=== PATIENT | male | born 1940 | race Caucasian/White ===

== ENCOUNTER 2021-06-29 12:18 | Emergency (ER) | payer MEDICARE, SELFPAY ==
--- NOTE | ~2021-06-29 | CT_ITS ---
EXAMINATION: CT ABDOMEN AND PELVIS WITHOUT CONTRAST CLINICAL INFORMATION: Nephrolithiasis. COMPARISON: Multiple priors. Most recent CT of the abdomen and pelvis dated from 09/09/2019. TECHNIQUE: Multidetector volumetric imaging was performed from the superior aspect of the liver through the pubic symphysis. Sagittal and coronal reformatted images were obtained on the technologist's workstation. This CT examination was performed using dose optimization techniques as appropriate, variously including the following: *Automated exposure control *Adjustment of mA and/or kV according to patient size (this includes techniques or standardized protocols for targeted exams where dose is matched to indication/reason for exam; i.e. extremities or head) *Use of iterative reconstruction technique DLP: 900 mGy-cm FINDINGS: LUNG BASES: No focal consolidation or pleural effusion. LIVER, GALLBLADDER, AND BILIARY TREE: The liver is normal in size, shape, and attenuation. No focal hepatic lesion or biliary ductal dilatation is present. Redemonstration of a similar calcification in the region of the falciform ligament (3:13). There is cholelithiasis and likely sludge within the lumen of the gallbladder without evidence of wall thickening or surrounding inflammatory changes. There is no biliary ductal dilatation. PANCREAS: Diffuse fatty atrophy without discrete lesions. The main pancreatic duct is nondilated. SPLEEN: Unremarkable. ADRENAL GLANDS: Unremarkable. KIDNEYS AND URETERS: There is new moderate to severe left hydroureteronephrosis with a 0.6 cm calculus layering dependently in the lumen of the urinary bladder (3:79). In this area of the bladder, there was a 0.3 cm calcification on the prior study from 2019 and therefore this possibly represents a combination of 2 stones. There is no evidence of ureteric calculi. There is no right hydroureteronephrosis. There is redemonstration of multiple bilateral renal calculi which are not significantly changed aside from decrease number of stones in the left kidney. Some of the largest calculi are as follow: A 0.3 cm calculus in the interpolar region of the left kidney (3:30) at approximately 12.6 cm from the skin of the posterior axillary line. A 0.4 cm calculus in the interpolar region of the left kidney (3:33) at 15 cm from the skin of the posterior axillary line. A 0.5 cm calculus in the lower pole of left kidney (3:36) at 14.5 cm from the skin of the posterior axillary line. A 0.57 m calculus in the upper pole of the right kidney (3:31) at approximately 14 cm from the skin of the posterior axillary line. A 0.7 cm calculus in the lower pole of the right kidney (3:39) measuring up to 896 Hounsfield units and situated at approximately 15.5 cm from the skin of the posterior axillary line. There is asymmetric perinephric fat stranding and periureteral fat stranding on the left side. Accounting for limitations in the absence of intravenous contrast, no definite parenchymal abnormalities are identified. BLADDER: As above, there is a 0.6 cm calculus in the lumen of the bladder. There is no wall thickening or surrounding inflammatory changes. GASTROINTESTINAL TRACT: The stomach and the small bowel are nondilated. Normal appendix. No active inflammatory bowel changes. Large stool ball in the rectum. ABDOMINAL WALL: Small fat-containing bilateral inguinal hernias. LYMPH NODES: There is no lymphadenopathy by size criteria. VASCULAR: Scattered atherosclerotic disease. The abdominal aorta is of normal diameter. PELVIC VISCERA: Coarse prostatic calcifications. The prostate gland measures approximately 3.1 x 4.6 cm in maximum AP and TV dimensions. OSSEOUS STRUCTURES: No acute or aggressive osseous abnormalities. Multilevel thoracolumbar spondylosis. CT/CT abdomen pelvis wo con IMPRESSION: New moderate to severe left hydroureteronephrosis with a 0.6 cm calculus within the lumen of the urinary bladder. No ureteric calculi identified. There is asymmetric fat stranding in the left perinephric space, left collecting system and left ureter, likely reactive. However, a superimposed infection should be clinically excluded. There is redemonstration of multiple additional bilateral renal calculi, which are described in detail above. These are overall similar since 2020 aside from decreased number of calculi in the left kidney. Cholelithiasis. No evidence to suggest acute cholecystitis. Large amount of stool in the rectum.
[2021-06-29 13:32] VITALS: BP 151/50; PULSE 56; RESP 16; TEMP 36.9; O2SAT 95; BMI 38.0
[2021-06-29 14:09] LABS: Appearance Urine CLEAR; Color Urine YELLOW; Glucose Urine UA NEG (NEG); Leukocyte Esterase Urine 1+ (NEG); Nitrite Urine NEG (NEG); PH 5.5 (5.0-8.0); Specific Gravity - Urine >= 1.030 (1.005-1.025); UACC Culture Trigger YES; Urine Blood 3+ (NEG); Urine Ketones NEG (NEG); Urine Protein NEG (NEG-TRACE)
[2021-06-29 14:38] LABS: Squamous Epithelial Cell Urine TRACE /LPF
[2021-06-29 14:39] LABS: Mucus Urine 1+ /LPF
--- NOTE | 2021-06-29 17:25 | ED_ITS ---
HPI - Male Genitourinary General Chief complaint: Urogenital-Male Stated complaint: KIDNEY PAIN STONES Time Seen by Provider: 06/29/21 20:00 Source: patient and family Mode of arrival: ambulatory Limitations: no limitations History of Present Illness HPI Narrative: 80-year-old male presents with 2 days of left-sided flank and groin pain. States that he has a history of kidney stones. Onset (ago): day(s) (2) Duration: constant Location: left flank Severity: moderate Severity scale (1-10): 7 Quality: aching and sharp Relieving factors: none Exacerbating factors: urination and movement Context: other (History of recurrent kidney stones) Associated symptoms: Reports denies other symptoms Related Data Previous Rx's Medication Instructions Recorded levofloxacin 500 mg tablet 500 mg PO DAILY 5 Days #5 tab 06/29/21 polyethylene glycol 3350 17 17 g PO BID #510 g 06/29/21 gram/dose oral powder (Miralax) tamsulosin 0.4 mg capsule (Flomax) 0.4 mg PO DAILY #30 cap 06/29/21 Allergies Allergy/AdvReac Type Severity Reaction Status Date / Time No Known Allergies [NKA] Allergy Mild NOT Unverified 04/13/20 14:58 APPLICABLE Review of Systems Review of Systems: Constitutional: No Fever, positive Chills ENT/Mouth: No sore throat Eyes: No Eye Pain, No Swelling, No Redness Cardiovascular: No Chest Pain, No SOB Respiratory: No Cough, No Sputum, No Wheezing Gastrointestinal: positive Nausea, no Vomiting, No Diarrhea, positive abdominal pain Genitourinary: No Dysuria, positive urinary frequency, positive Hematuria, positive Flank Pain, positive hesitancy Musculoskeletal: No joint pain, No Myalgias Skin: No Skin Lesions, No rash Neuro: No Weakness, No Numbness, No Headache Psych: No Anxiety/Panic, No Depression Heme/Lymph: No Bruising, No Lymphadenopathy Endocrine: No Polyuria, No Polydipsia Yes all other systems are reviewed and are negative [facility] Past Medical History Attestation statement: The following information was validated with the patient. Source: old records reviewed Medical History Diabetes Hyperlipemia Hypertension Kidney calculus Social History Social History Alcohol intake: never Patient Tobacco Use Status: Former Tobacco user Use of substances other than those prescribed or required for medical reasons: No Advance Directives: No Advance Directives Information Provided: Yes Physical Exam Vital Signs: Vital Signs: Last Vital Signs Temp 98.2 F 06/29/21 17:35 Pulse 70 06/29/21 19:09 Resp 16 06/29/21 19:09 BP 131/41 L 06/29/21 19:09 Pulse Ox 94 06/29/21 19:09 BMI result Body Mass Index 38.0 Appearance: Alert. Oriented X3. No acute distress. Eyes: Pupils equal, round and reactive to light. ENT: Pharynx normal. Neck: Normal inspection. Neck supple. CVS: Normal heart rate and rhythm. Pulses normal. Respiratory: No respiratory distress. Breath sounds normal. Abdomen: Soft and nontender. Positive CVA tenderness. Skin: Skin warm and dry. Normal skin color. Normal skin turgor. Extremities: No lower extremity edema. Gait well-balanced well coordinated. Neuro: No motor deficit. No sensory deficit. Cranial nerves 2-12 intact. Course Course Course Narrative: 80-year-old male presents with recurrent kidney stones presents with 2 days of left-sided flank and groin pain. Has had intermittent chills but denies fevers. Will order CT abdomen as he does have positive CVA tenderness to left side and tenderness of the left lower quadrant on physical exam. CT scan abdomen pelvis indicates kidney stones with severe hydronephrosis and possible pyelo with perinephric stranding. Patient does not want to stay for admission. Discussion with patient and Dr Livingston in to evaluate my patient still requests to be discharged home. Detailed discussion regarding leaving against medical advice, will provide antibiotics, pain management and Flomax. I did discuss this case with on-call Urology, they will see the patient in the office. Patient verbalizes understanding of and agrees to plan of care. Consultations Consultation #1: santa Time: 20:30 MDM - Male Genitourinary MDM Narrative Medical decision making narrative: Kidney stone, hydronephrosis, pyelo Differential Diagnosis Differential diagnosis: Likely urinary tract infection, urethritis, epididymitis, prostatitis and acute retention of urine Medical Records Attestation: I reviewed the patient's medical records. Lab Data Attestation: I reviewed the patient's lab results. Result diagrams: 06/29/21 17:49 06/29/21 17:48 Labs: Lab Results 06/29/21 06/29/21 06/29/21 Range/Units 13:48 17:48 17:49 WBC 12.2 H (4.8-10.8) X10*3/uL RBC 4.91 (4.60-5.80) X10*6/uL Hgb 14.7 (14.0-18.0) g/dl Hct 44.0 (42.0-52.0) % MCV 89.6 (80.0-98.0) fL MCH 29.9 (27.0-33.0) pg MCHC 33.4 (31.0-36.0) g/dl RDW 12.9 (11.0-16.0) % Plt Count 168 (160-400) X10*3/uL MPV 10.8 (9.4-12.4) fL Immature Gran % (Auto) 0.5 H (0.0-0.4) % Neut % (Auto) 77.9 H (45-73) % Lymph % (Auto) 14.1 L (20-40) % [place] % (Auto) 5.7 (2-11) % Eos % (Auto) 0.6 (0-4) % Baso % (Auto) 1.2 (0-2) % Lymph # (Auto) 1.7 (1.2-4.9) X10*3/uL [place] # (Auto) 0.7 (0.1-1.2) X10*3/uL Eos # (Auto) 0.1 (0.0-0.4) X10*3/uL Baso # (Auto) 0.2 (0.0-0.2) X10*3/uL Abs Immat Gran (auto) 0.06 H (0.00-0.03) X10*3/uL Absolute Neuts (auto) 9.5 H (2.0-8.3) x10*3/uL Absolute Nucleated RBC 0.000 (0.0-0.012) X10*3/uL Nucleated RBC % (auto) 0.0 (0.0-0.2) /100WBC Sodium 137 (135-145) mmol/L Potassium 5.5 H (3.3-5.1) mmol/L Chloride 106 (96-108) mmol/L Carbon Dioxide 21 L (22-29) mmol/L Anion Gap 16 (12-20) BUN 19 H (9-16) mg/dL Creatinine 1.72 H (0.5-1.4) mg/dL Estim Creat Clear Calc 45.9 Estimated GFR 39 Random Glucose 164 H (60-115) mg/dL Calcium 9.2 (8.4-10.2) mg/dL Urine Color YELLOW Urine Appearance CLEAR Urine pH 5.5 (5.0-8.0) Ur Specific [place] >= 1.030 H (1.005-1.025) Urine Protein NEG (NEG-TRACE) MG/DL Urine Glucose (UA) NEG (NEG) MG/DL Urine Ketones NEG (NEG) MG/DL Urine Blood 3+ H (NEG) Urine Nitrite NEG (NEG) Ur Leukocyte Esterase 1+ H (NEG) Urine RBC 10-14 H (0) /HPF Urine WBC 10-14 H (0-4) /HPF Ur Squamous Epith Cells TRACE /LPF Urine Bacteria NONE /LPF Urine Mucus 1+ /LPF Imaging Data CT abdomen pelvis: Attestation: I personally reviewed and interpreted this imaging study as follows: Radiologist's impression: EXAMINATION: CT ABDOMEN AND PELVIS WITHOUT CONTRAST? CLINICAL INFORMATION: Nephrolithiasis.? COMPARISON: Multiple priors. Most recent CT of the abdomen and pelvis dated from 09/09/2019.? TECHNIQUE: Multidetector volumetric imaging was performed from the superior aspect of the liver through the pubic symphysis. Sagittal and coronal reformatted images were obtained on the technologist's workstation.? This CT examination was performed using dose optimization techniques as appropriate, variously including the following: *Automated exposure control *Adjustment of mA and/or kV according to patient size (this includes techniques or standardized protocols for targeted exams where dose is matched to indication/reason for exam; i.e. extremities or head) *Use of iterative reconstruction technique DLP: 900 mGy-cm FINDINGS: LUNG BASES: No focal consolidation or pleural effusion.? LIVER, GALLBLADDER, AND BILIARY TREE: The liver is normal in size, shape, and attenuation. No focal hepatic lesion or biliary ductal dilatation is present. Redemonstration of a similar calcification in the region of the falciform ligament (3:13). There is cholelithiasis and likely sludge within the lumen of the gallbladder without evidence of wall thickening or surrounding inflammatory changes. There is no biliary ductal dilatation.? PANCREAS: Diffuse fatty atrophy without discrete lesions. The main pancreatic duct is nondilated.? SPLEEN: Unremarkable.? ADRENAL GLANDS: Unremarkable.? KIDNEYS AND URETERS: There is new moderate to severe left hydroureteronephrosis with a 0.6 cm calculus layering dependently in the lumen of the urinary bladder (3:79). In this area of the bladder, there was a 0.3 cm calcification on the prior study from 2019 and therefore this possibly represents a combination of 2 stones. There is no evidence of ureteric calculi. There is no right hydroureteronephrosis. There is redemonstration of multiple bilateral renal calculi which are not significantly changed aside from decrease number of stones in the left kidney. Some of the largest calculi are as follow: A 0.3 cm calculus in the interpolar region of the left kidney (3:30) at approximately 12.6 cm from the skin of the posterior axillary line. A 0.4 cm calculus in the interpolar region of the left kidney (3:33) at 15 cm from the skin of the posterior axillary line. A 0.5 cm calculus in the lower pole of left kidney (3:36) at 14.5 cm from the skin of the posterior axillary line. A 0.57 m calculus in the upper pole of the right kidney (3:31) at approximately 14 cm from the skin of the posterior axillary line. A 0.7 cm calculus in the lower pole of the right kidney (3:39) measuring up to 896 Hounsfield units and situated at approximately 15.5 cm from the skin of the posterior axillary line. There is asymmetric perinephric fat stranding and periureteral fat stranding on the left side. Accounting for limitations in the absence of intravenous contrast, no definite parenchymal abnormalities are identified.? BLADDER: As above, there is a 0.6 cm calculus in the lumen of the bladder. There is no wall thickening or surrounding inflammatory changes.? GASTROINTESTINAL TRACT: The stomach and the small bowel are nondilated. Normal appendix. No active inflammatory bowel changes. Large stool ball in the rectum.? ABDOMINAL WALL: Small fat-containing bilateral inguinal hernias.? LYMPH NODES: There is no lymphadenopathy by size criteria. VASCULAR: Scattered atherosclerotic disease. The abdominal aorta is of normal diameter. PELVIC VISCERA: Coarse prostatic calcifications. The prostate gland measures approximately 3.1 x 4.6 cm in maximum AP and TV dimensions.? OSSEOUS STRUCTURES: No acute or aggressive osseous abnormalities. Multilevel thoracolumbar spondylosis.? CT/CT abdomen pelvis wo con IMPRESSION: New moderate to severe left hydroureteronephrosis with a 0.6 cm calculus within the lumen of the urinary bladder. No ureteric calculi identified. There is asymmetric fat stranding in the left perinephric space, left collecting system and left ureter, likely reactive. However, a superimposed infection should be clinically excluded. ? There is redemonstration of multiple additional bilateral renal calculi, which are described in detail above. These are overall similar since 2020 aside from decreased number of calculi in the left kidney. ? Cholelithiasis. No evidence to suggest acute cholecystitis. ? Large amount of stool in the rectum.? ECG Data Attestation: I personally reviewed and interpreted this ECG as follows: ECG interpretation date: 06/29/21 ECG interpretation time: 17:26 Prior ECG tracings: available for review Interpretation: Vent. Rate : 072 BPM ? ? Atrial Rate : 072 BPM ?? P-R Int : 224 ms? QRS Dur : 096 ms ? ? QT Int : 414 ms ? ? ? P-R-T Axes : 072 029 035 degrees ?? QTc Int : 453 ms ? Sinus rhythm with 1st degree A-V block with occasional Premature ventricular complexes Otherwise normal ECG When compared with ECG of 01-JUL-2017 16:52, Premature ventricular complexes are now Present ? Critical Care Time Critical Care Time Critical Care Time: Yes Total Critical Care Time: 40 Attestation: I have personally provided critical care time exclusive of time spent on sepa rately billable procedures. Time includes review of laboratory data, radiology results, discussion with consultants, and monitoring for potential decompensation. Interventions were performed as documented. Discharge Plan Discharge Clinical Impression: Acute pyelonephritis, Kidney stone Patient Disposition: Left Against Medical Advice Instructions: Kidney Stones (ED), Kidney Infection (ED) Additional Instructions: You were evaluated for left-sided flank and groin pain. CT of the abdomen and pelvis indicates multiple kidney stones with kidney infection. You have decided to leave against medical advice. If you develop fevers, chills, nausea, vomiting or any other concerning symptoms please return to the emergency department immediately as you are at high risk for worsening infection including sepsis. Please take Levaquin 750 mg for the next 5 days. Take Flomax 0.4 mg daily. You have a prior prescription for oxycodone. Please continue to use this medication as directed. This medication is a narcotic and has high risk for addiction and abuse. Do not drive or operate machinery while taking this medication. This medication will cause drowsiness, increased risk for falls, and cause constipation. Please use MiraLax daily. CT scan does indicate constipation as you do have a large stool burden. Please use MiraLax twice a day while on oxycodone. I did discuss your case with Dr. Salinas, urology. Please call and request an appointment. He is expecting your call. Thank you for choosing this emergency department for evaluation. Please follow-up with primary care physician as needed. Return to the emergency department for any new, concerning, or worsening symptoms. Prescriptions: New tamsulosin [Flomax] 0.4 mg capsule 0.4 mg PO DAILY Qty: 30 RF: 0 levofloxacin 500 mg tablet 500 mg PO DAILY 5 Days Qty: 5 RF: 0 polyethylene glycol 3350 [Miralax] 17 gram/dose powder 17 g PO BID Qty: 510 RF: 0 Referrals: Price Salinas MD [Physician] - 2 days (Kidney stones, hydronephrosis, pyelonephritis) Stand Alone Forms: Against Medical Advice Interventions: ED Discharge Assessment Last Done: 06/29/21 21:29 Discharge Date/Time: 06/29/21 21:30
--- NOTE | 2021-06-29 17:26 | ECG_ITS ---
Test Reason : ABDOMINAL PAIN Blood Pressure : / mmHG Vent. Rate : 072 BPM Atrial Rate : 072 BPM P-R Int : 224 ms QRS Dur : 096 ms QT Int : 414 ms P-R-T Axes : 072 029 035 degrees QTc Int : 453 ms Sinus rhythm with 1st degree A-V block with occasional Premature ventricular complexes Otherwise normal ECG When compared with ECG of 01-JUL-2017 16:52, Premature ventricular complexes are now Present Referred By: Dayanna Dang Electronically Signed By:PATRICK TERRY
[2021-06-29 17:35] VITALS: BP 194/82; PULSE 71; TEMP 36.8; O2SAT 96
[2021-06-29] MEDS: 0.9 % Sodium Chloride 1,000 ML 999 ML IVCONT ×2 (17:53→20:10)
[2021-06-29 17:55] LABS: MANUAL DIFF FLAG NO
[2021-06-29] MEDS: Morphine Sulfate 4 MG/ML CARTRIDGE IVPUSH (17:56)
[2021-06-29] MEDS: ondansetron HCL 4 MG/2 ML VIAL IVPUSH (17:56)
[2021-06-29 17:59] LABS: Basophils Absolute Auto 0.2 X10*3/uL (0.0-0.2); Basophils Percent Auto 1.2 % (0-2); Eosinophils Absolute Auto 0.1 X10*3/uL (0.0-0.4); Eosinophils Percent Auto 0.6 % (0-4); Hemoglobin 14.7 g/dl (14.0-18.0); Imm Gran Abs Auto 0.06 X10*3/uL (0.00-0.03); Imm Gran Pct Auto 0.5 % (0.0-0.4); Lymphocytes Absolute Auto 1.7 X10*3/uL (1.2-4.9); Lymphocytes Percent Auto 14.1 % (20-40); Mean Corpuscular HGB Conc 33.4 g/dl (31.0-36.0); Mean Corpuscular Hemoglobin 29.9 pg (27.0-33.0); Mean Corpuscular Volume 89.6 fL (80.0-98.0); Mean Platelet Volume 10.8 fL (9.4-12.4); Monocytes Absolute Auto 0.7 X10*3/uL (0.1-1.2); Monocytes Percent Auto 5.7 % (2-11); Neutrophils Absolute Auto 9.5 x10*3/uL (2.0-8.3); Neutrophils Percent Auto 77.9 % (45-73); Platelet Count 168 X10*3/uL (160-400); Red Blood Count 4.91 X10*6/uL (4.60-5.80); Red Cell Distribution Width 12.9 % (11.0-16.0); White Blood Count 12.2 X10*3/uL (4.8-10.8)
[2021-06-29 18:15] LABS: Anion Gap 16 (12-20); Blood Urea Nitrogen 19 mg/dL (9-16); Calcium 9.2 mg/dL (8.4-10.2); Carbon Dioxide 21 mmol/L (22-29); Chloride 106 mmol/L (96-108); Creatinine Clr Calc Pharmacy 45.9; Estimated Glomerular Filt Rate 39; Glucose Random 164 mg/dL (60-115); Potassium 5.5 mmol/L (3.3-5.1); Sodium 137 mmol/L (135-145)
[2021-06-29 19:09] VITALS: BP 131/41; PULSE 70; RESP 16; O2SAT 94
[2021-06-29] MEDS: levoFLOXacin/D5W 500 MG/100 ML PIGGYBACK 100 MG IV (20:11)
[2021-06-29] MEDS: oxyCODONE HCl Immed Release 5 MG TABLET PO (20:13)
[2021-06-29] MEDS: Tamsulosin HCL 0.4 MG CAPSULE PO (20:13)
== END 2021-06-29 21:30 | disposition left against medical advice (07) ==
PROVIDERS: Nurse Practitioner Family; Emergency Provider Internal Medicine; PCP Internal Medicine
DX: N10 Acute pyelonephritis (principal); N13.2 Hydronephrosis with renal and ureteral calculous obstruction; E11.9 Type 2 diabetes mellitus without complications; I10 Essential (primary) hypertension; Z87.442 Personal history of urinary calculi
CPT/HCPCS: 36415; 74176; 80048; 81001; 85025; 87086; 93005; 96361; 96365; 96375; 99285; 99291; J1956; J2270; J2405

== ENCOUNTER 2022-06-24 09:48 | Emergency (ER) | payer MEDICARE, SELFPAY ==
--- NOTE | 2022-06-24 | ECG_ITS ---
Test Reason : numbness in legs Blood Pressure : / mmHG Vent. Rate : 062 BPM Atrial Rate : 062 BPM P-R Int : 240 ms QRS Dur : 092 ms QT Int : 416 ms P-R-T Axes : 072 025 048 degrees QTc Int : 422 ms Sinus rhythm with 1st degree A-V block Otherwise normal ECG When compared with ECG of 29-JUN-2021 18:08, Premature ventricular complexes are no longer Present Referred By: Generic ED Physician Electronically Signed By:ALISHA OBRIEN MD
[2022-06-24 11:01] VITALS: BP 114/53; PULSE 62; RESP 18; TEMP 36.6; O2SAT 94; BMI 35.2
[2022-06-24 11:25] LABS: MANUAL DIFF FLAG NO
[2022-06-24 11:29] LABS: Basophils Absolute Auto 0.1 X10*3/uL (0.0-0.2); Basophils Percent Auto 0.9 % (0-2); Eosinophils Absolute Auto 0.2 X10*3/uL (0.0-0.4); Eosinophils Percent Auto 1.9 % (0-4); Hematocrit 40.1 % (42.0-52.0); Hemoglobin 13.1 g/dl (14.0-18.0); Imm Gran Abs Auto 0.03 X10*3/uL (0.00-0.03); Imm Gran Pct Auto 0.3 % (0.0-0.4); Lymphocytes Absolute Auto 1.5 X10*3/uL (1.2-4.9); Lymphocytes Percent Auto 14.1 % (20-40); Mean Corpuscular HGB Conc 32.7 g/dl (31.0-36.0); Mean Corpuscular Hemoglobin 28.9 pg (27.0-33.0); Mean Corpuscular Volume 88.3 fL (80.0-98.0); Mean Platelet Volume 10.2 fL (9.4-12.4); Monocytes Absolute Auto 0.9 X10*3/uL (0.1-1.2); Monocytes Percent Auto 8.1 % (2-11); Neutrophils Percent Auto 74.7 % (45-73); Platelet Count 174 X10*3/uL (160-400); Red Blood Count 4.54 X10*6/uL (4.60-5.80); Red Cell Distribution Width 12.8 % (11.0-16.0); White Blood Count 10.6 X10*3/uL (4.8-10.8)
[2022-06-24 11:46] LABS: Alanine Aminotransferase 16 U/L (0-40); Alkaline Phosphatase 59 U/L (39-117); Anion Gap 13 (12-20); Aspartate Amino Transferase 28 U/L (5-37); Bilirubin Total 0.8 mg/dL (0.0-1.0); Blood Urea Nitrogen 17 mg/dL (9-16); Carbon Dioxide 26 mmol/L (22-29); Chloride 105 mmol/L (96-108); Creatinine Clr Calc Pharmacy 47.9; Estimated Glomerular Filt Rate 43; Glucose Random 107 mg/dL (60-115); Sodium 139 mmol/L (135-145); Total Protein 6.6 g/dL (6.5-8.0)
--- NOTE | 2022-06-24 14:58 | ED_ITS ---
HPI - General Adult General Chief complaint: Weakness Stated complaint: Leg numbness/Confusion Time Seen by Provider: 06/24/22 14:56 Source: patient Mode of arrival: ambulatory Limitations: no limitations History of Present Illness HPI narrative: Patient with increasing leg cramps and fell on Friday. Patient getting cramping every morning when he gets up. Onset (ago): week(s) Location: lower extremity Severity: moderate Pain Consistency: intermittent Exacerbating factors: other (standing) Associated symptoms: denies other symptoms Related Data Previous Rx's Medication Instructions Recorded levofloxacin 500 mg tablet 500 mg PO DAILY 5 days #5 tabs 06/29/21 polyethylene glycol 3350 17 17 g PO BID #510 grams 06/29/21 gram/dose oral powder (Miralax) tamsulosin 0.4 mg capsule (Flomax) 0.4 mg PO DAILY #30 caps 06/29/21 Allergies Allergy/AdvReac Type Severity Reaction Status Date / Time No Known Allergies [NKA] Allergy Mild NOT Unverified 04/13/20 14:58 APPLICABLE Review of Systems Review of Systems: Yes all other systems are reviewed and are negative [facility] Past Medical History Medical History Diabetes Hyperlipemia Hypertension Kidney calculus Social History Social History Alcohol intake: never Patient Tobacco Use Status: Former Tobacco user Advance Directives: No Advance Directives Information Provided: Yes Physical Exam ED Vital Signs: Vital Signs - 24 hr 06/24/22 11:01 06/24/22 15:29 Temperature 97.8 F 100.1 F Pulse Rate 62 71 Respiratory Rate 18 15 Blood Pressure 114/53 L 119/54 L Pulse Oximetry 94 94 Oxygen Delivery Method Room Air Room Air BMI result Body Mass Index 35.2 Course Reevaluation(s) Reevaluation #1: calcium, magnesium and Vitamin d all normal. patient with leg spasms and myoclonus will dc home and encourage hydration Time: 16:20 Medical Decision Making Lab Data Result diagrams: 06/24/22 11:20 06/24/22 11:20 Labs: Lab Results 06/24/22 06/24/22 Range/Units 11:20 11:20 WBC 10.6 (4.8-10.8) X10*3/uL RBC 4.54 L (4.60-5.80) X10*6/uL Hgb 13.1 L (14.0-18.0) g/dl Hct 40.1 L (42.0-52.0) % MCV 88.3 (80.0-98.0) fL MCH 28.9 (27.0-33.0) pg MCHC 32.7 (31.0-36.0) g/dl RDW 12.8 (11.0-16.0) % Plt Count 174 (160-400) X10*3/uL MPV 10.2 (9.4-12.4) fL Immature Gran % (Auto) 0.3 (0.0-0.4) % Neut % (Auto) 74.7 H (45-73) % Lymph % (Auto) 14.1 L (20-40) % [place] % (Auto) 8.1 (2-11) % Eos % (Auto) 1.9 (0-4) % Baso % (Auto) 0.9 (0-2) % Lymph # (Auto) 1.5 (1.2-4.9) X10*3/uL [place] # (Auto) 0.9 (0.1-1.2) X10*3/uL Eos # (Auto) 0.2 (0.0-0.4) X10*3/uL Baso # (Auto) 0.1 (0.0-0.2) X10*3/uL Abs Immat Gran (auto) 0.03 (0.00-0.03) X10*3/uL Absolute Neuts (auto) 8.0 (2.0-8.3) x10*3/uL Absolute Nucleated RBC 0.000 (0.0-0.012) X10*3/uL Nucleated RBC % (auto) 0.0 (0.0-0.2) /100WBC Sodium 139 (135-145) mmol/L Potassium 5.0 (3.3-5.1) mmol/L Chloride 105 (96-108) mmol/L Carbon Dioxide 26 (22-29) mmol/L Anion Gap 13 (12-20) BUN 17 H (9-16) mg/dL Creatinine 1.56 H (0.5-1.4) mg/dL Estim Creat Clear Calc 47.9 Estimated GFR 43 Random Glucose 107 (60-115) mg/dL Calcium 9.0 (8.4-10.2) mg/dL Magnesium 2.0 (1.6-2.6) mg/dL Total Bilirubin 0.8 (0.0-1.0) mg/dL AST 28 (5-37) U/L ALT 16 (0-40) U/L Alkaline Phosphatase 59 (39-117) U/L Total Protein 6.6 (6.5-8.0) g/dL Albumin 4.0 (3.5-5.0) g/dL 25-OH Vitamin D Total 39.4 (>30) ng/mL Discharge Plan Discharge Clinical Impression: Myoclonus Patient Disposition: Home, Self-Care Instructions: Leg Cramps (ED), Muscle Cramp (ED) Prescriptions: No Action tamsulosin [Flomax] 0.4 mg capsule 0.4 mg PO DAILY Qty: 30 0RF levofloxacin 500 mg tablet 500 mg PO DAILY 5 Days Qty: 5 0RF polyethylene glycol 3350 [Miralax] 17 gram/dose powder 17 g PO BID Qty: 510 0RF Referrals: Stanislav Nice MD [Primary Care Provider] - 5 days
[2022-06-24 15:29] VITALS: BP 119/54; PULSE 71; RESP 15; TEMP 37.8; O2SAT 94
[2022-06-24 15:52] LABS: Vitamin D 25-OH Total 39.4 ng/mL (>30)
== END 2022-06-24 18:16 | disposition home or self-care (01) ==
PROVIDERS: Emergency Provider Emergency Medicine; PCP Internal Medicine
DX: G25.3 Myoclonus (principal); R53.1 Weakness; E11.9 Type 2 diabetes mellitus without complications; I11.0 Hypertensive heart disease with heart failure; E78.5 Hyperlipidemia, unspecified; E66.9 Obesity, unspecified; Z68.35 Body mass index [BMI] 35.0-35.9, adult; Z79.899 Other long term (current) drug therapy
CPT/HCPCS: 36415; 80053; 82306; 83735; 85025; 93005; 99283; 99284

== ENCOUNTER 2022-06-25 08:43 | Emergency (ER) | payer MEDICARE, SELFPAY ==
[2022-06-25] VITALS (7 sets, daily range): BP systolic 110–149; BP diastolic 48–91; PULSE 62–82; RESP 11–20; TEMP 36.8–37; O2SAT 95–97; BMI 35.2
--- NOTE | ~2022-06-25 | XR_ITS ---
EXAMINATION: XR CHEST CLINICAL INFORMATION: Chest pain COMPARISON: None TECHNIQUE: Frontal view of the chest was obtained. FINDINGS: The lungs are well-expanded and clear. Heart size and pulmonary vascularity is normal. There is mild spondylosis dorsal spine. XR/XR chest 1V IMPRESSION: Unremarkable chest examination.
--- NOTE | ~2022-06-25 | CT_ITS ---
EXAMINATION: CT HEAD WITHOUT CONTRAST (STROKE PROTOCOL) CLINICAL INFORMATION: Stroke protocol. Aphasia. COMPARISON: None TECHNIQUE: Contiguous axial imaging was performed from the skull base to vertex without intravenous administration of contrast. Axial images are provided. This CT examination was performed using dose optimization techniques as appropriate, variously including the following: *Automated exposure control *Adjustment of mA and/or kV according to patient size (this includes techniques or standardized protocols for targeted exams where dose is matched to indication/reason for exam; i.e. extremities or head) *Use of iterative reconstruction technique DLP: 837 mGy-cm FINDINGS: There is large area of vasogenic edema involving the right frontal lobe. There is compression of the right lateral ventricle and midline shift towards the left by approximately 0.7 cm. Underlying brain tumor is suspected, such as glioblastoma. There is effacement of the overlying cortical sulci. No intracranial hemorrhage or hematoma. No hydrocephalus. No territorial infarct appreciated. The calvarium appears intact. There is no pneumocephalus or orbital emphysema. The visualized sinuses and middle ears and mastoid air cells show no significant mucosal thickening. There are no air-fluid levels. Results are called and discussed with Dr. Garcia in the emergency department at approximately [address]/CT head for stroke IMPRESSION: -Large area of vasogenic edema right frontal lobe with compression of right lateral ventricle and midline shift towards the left by approximately 0.7 cm. Underlying brain tumor is suspected, such as glioblastoma. -No intracranial hemorrhage or hematoma. No hydrocephalus.
--- NOTE | ~2022-06-25 | CT_ITS ---
EXAMINATION: CT angio head neck stroke CLINICAL INFORMATION: Aphasia. Question stroke. COMPARISON: CT scan of the head 06/25/2022. TECHNIQUE: Cloth Winder Machine Operator images were obtained. A CT angiogram of the head and neck was performed in the arterial phase after the intravenous administration of 70 mL Omnipaque 350. Pre and delayed postcontrast images of the head were also obtained. MIP reconstructions were generated in multiple orientations at the acquisition workstation. Multiple three-dimensional surface rendered images and maximum intensity projection images were generated on a dedicated 3-D lab workstation. Arterial stenoses are measured in accordance with NASCET criteria or similar method if applicable. This CT examination was performed using dose optimization techniques as appropriate, including one or more of the following: Automated exposure control, iterative reconstruction, and adjustment of technique factors (mA and/or kVp) according to patient size (this includes techniques or standardized protocols for targeted exams where dose is matched to indication/reason for exam). Fleischner Society criteria for the followup of incidental pulmonary nodules was implemented if appropriate. Total exam dose-length product 1673 mGy-cm FINDINGS: Head: There is heterogeneous enhancement associated with a large expansile mass involving the right frontal lobe and the genu of the corpus callosum. Mass effect within the right supratentorial compartment causes 0.9 cm leftward midline shift measured at the septum pellucidum. No uncal herniation or transtentorial herniation. Grossly no evidence of acute territorial infarct. No hydrocephalus. The calvarium and skull base are intact. Mastoid air cells and middle ear cavities are well aerated. No active paranasal sinus disease. A perforation of the membranous nasal septum is noted. CT angiogram neck: The aortic arch apex is normal. Origins of the major aortic branches are widely patent. Common carotid arteries are normal. Partially calcified atherosclerotic plaque involves both carotid bifurcations. No stenosis of the extracranial internal carotid arteries. The cervical segments of the vertebral arteries as well as their origins are patent. CT angiogram head: Intracranial internal carotid arteries are patent. Intradural vertebral artery segments and basilar artery are patent. Anterior, middle, and posterior cerebral artery complexes are normal. No intracranial large vessel occlusion. Other: Soft tissues of the neck including the thyroid gland are normal. Lung apices are clear. There is multilevel degenerative spondylosis of the cervical spine with at least mild canal stenosis at multiple levels. CT/CT angio head neck stroke IMPRESSION: There is a large heterogeneously enhancing expansile mass involving the right frontal lobe and the genu of the corpus callosum. 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 A dedicated brain MRI without and with contrast is therefore recommended for better anatomic characterization. Otherwise unremarkable examination in that there is no stenosis of the cervical carotid or vertebral arteries. No intracranial large vessel occlusion. There is multilevel degenerative spondylosis of the cervical spine with at least moderate canal stenosis at multiple levels. This critical result was discussed with Bruce Garcia MD at 9:09 AM on 06/25/2022 and it was ascertained that the content and urgency of the report was understood at the time of direct communication.
--- NOTE | 2022-06-25 08:53 | ECG_ITS ---
Test Reason : STROKE Blood Pressure : / mmHG Vent. Rate : 072 BPM Atrial Rate : 072 BPM P-R Int : 264 ms QRS Dur : 088 ms QT Int : 398 ms P-R-T Axes : 064 051 071 degrees QTc Int : 435 ms Sinus rhythm with 1st degree A-V block Nonspecific ST abnormality RSR' or QR pattern in V1 suggests right ventricular conduction delay Abnormal ECG When compared with ECG of 24-JUN-2022 11:13, No significant change was found Referred By: Bruce Garcia Electronically Signed By:ALISHA OBRIEN MD
--- NOTE | 2022-06-25 09:18 | PC.NURSE ---
@ 0908 CALL PLACED TO [facility] PT TX LINE @ DR KAN REQUEST ANSWERING COORDINATOR REQUESTS TO SPEAK WITH DR KAN BEFORE TAKING PT INFO DR KAN TAKES OVER CALL RIGHT AWAY
[2022-06-25] MEDS: dexAMETHasone sod phosphate 10 MG/ML VIAL IVPUSH (09:19)
--- NOTE | 2022-06-25 09:19 | PC.NURSE ---
@ THIS TIME FREDERIC FROM [facility] PT [place] LINE TAKES PT INFO AND CALL BACK NUMBER
--- NOTE | 2022-06-25 09:20 | ED.NEUROSD ---
HPI - Neuro Symptoms/Deficit General Chief Complaint: Neuro Symptoms/Deficit Stated Complaint: STROKE ALERT,L LEG WEA/DROOP,LKWT/UNK,-THINNERS Time Seen by Provider: 06/25/22 08:51 Source: EMS Mode of arrival: EMS History of Present Illness HPI Narrative: This is 81 years old brought in the goes leg weakness slurred speech, patient was seen yesterday in this emergency department was treated and released, according to his his legs have been weak been having a difficult to ambulate with spasm in the legs, also speech is been intermittently slurred for about a week . this morning was found in the floor by the and ambulance was called . He arrived awake and alert oriented did x3 with slight slurred speech. Patient was directed emergently to CT scan. Onset (ago): day(s) (1) Timing confirmed by: spouse Location: speech History of same: No Severity: moderate Quality: weak Relieving factors: none Exacerbating factors: none Context: gradual onset Related Data Previous Rx's Medication Instructions Recorded levofloxacin 500 mg tablet 500 mg PO DAILY 5 days #5 tabs 06/29/21 polyethylene glycol 3350 17 17 g PO BID #510 grams 06/29/21 gram/dose oral powder (Miralax) tamsulosin 0.4 mg capsule (Flomax) 0.4 mg PO DAILY #30 caps 06/29/21 Allergies Allergy/AdvReac Type Severity Reaction Status Date / Time No Known Allergies [NKA] Allergy Mild NOT Unverified 04/13/20 14:58 APPLICABLE Review of Systems Constitutional: Constitutional: Reports no additional constitutional complaints ENT: Reports system reviewed and no additional complaints, except as documented Cardiovascular: Cardiovascular: Reports no additional cardiovascular complaints Respiratory: Respiratory: Reports no additional respiratory complaints Musculoskeletal: Musculoskeletal: Reports no additional musculoskeletal complaints and Reports abnormal gait Neurologic: Reports as per HPI and Reports abnormal gait [facility] Past Medical History Medical History Diabetes Hyperlipemia Hypertension Kidney calculus Social History Social History Alcohol intake: never Patient Tobacco Use Status: Former Tobacco user Smoked in Last 30 Days: Yes Use of substances other than those prescribed or required for medical reasons: No Advance Directives: No Advance Directives Information Provided: No Physical Exam Vital Signs: Vital Signs: Last Vital Signs Temp 98.6 F 06/25/22 09:33 Pulse 62 06/25/22 11:15 Resp 15 06/25/22 11:15 BP 126/53 L 06/25/22 11:15 Pulse Ox 95 06/25/22 11:15 O2 Del Method 06/25/22 11:15 BMI result Body Mass Index 35.2 Const: General: cooperative Nutritional Appearance: average body habitus Orientation/consciousness: patient oriented x3 HEENT: Head: Yes normal to inspection Ears: hearing grossly normal bilaterally General nose exam: Normal external nose present Face and sinus: Yes normal facial exam Mouth: Normal oral and palatal mucosa present Throat: Yes posterior oropharynx normal Neck: Neck: Yes normal visual inspection, Yes full ROM and Yes no lymphadenopathy Chest: Chest palpation & inspection: normal inspection of the chest Resp: Effort & Inspection: normal respiratory effort Auscultation: clear to auscultation bilaterally Cardio: Jugular venous distension: no JVD Rate: regular rate Rhythm: regular rhythm GI: Inspection: Yes normal to inspection Palpation (GI): Soft to palpation Percussion: Yes normal to percussion Auscultation: normal bowel sounds : General: Yes no CVA tenderness Back/Spine/Pelvis: Back: no CVA tenderness Neuro: Other: He is awake alert oriented x3 he has a slightly 4/5 weakness in the right upper extremity his face is symmetric. General: patient oriented x3 Course Reevaluation(s) Reevaluation #1: SPOKE WITH NEUROSURGERY SERVICE AT [facility] SHE WILL CALL ME BACK Reevaluation #2: SPOKE WITH [facility] neurosurgery at [facility] ,medicine service will call for transfer Time: 10:55 Reevaluation #3: accepted by medical/neurosurgical service at [facility],waiting for bed Time: 11:30 Additional Reevaluation(s): spoke with at length ,decadron IV and keppra Iv given,waiting for bed Medications Administered Discontinued Medications Generic Name Dose Route Start Last Admin Trade Name Freq PRN Reason Stop Dose Admin Dexamethasone Sodium Phosphate 10 mg 06/25/22 09:09 06/25/22 09:19 Dexamethasone Sod Phosphate 10 Mg/Ml Vial IVPUSH 06/25/22 09:10 10 mg ONCE ONE Administration Levetiracetam 1,000 mg in 100 mls @ 400 mls/hr 06/25/22 09:47 06/25/22 10:18 Keppra IV 06/25/22 10:01 Infused ONCE ONE Infusion MDM - Neuro Symptoms/Deficit Lab Data Result diagrams: 06/25/22 09:33 06/25/22 09:32 Labs: Lab Results 06/25/22 06/25/22 06/25/22 Range/Units 09:32 09:32 09:32 WBC (4.8-10.8) X10*3/uL RBC (4.60-5.80) X10*6/uL Hgb (14.0-18.0) g/dl Hct (42.0-52.0) % MCV (80.0-98.0) fL MCH (27.0-33.0) pg MCHC (31.0-36.0) g/dl RDW (11.0-16.0) % Plt Count (160-400) X10*3/uL MPV (9.4-12.4) fL Immature Gran % (Auto) (0.0-0.4) % Neut % (Auto) (45-73) % Lymph % (Auto) (20-40) % [place] % (Auto) (2-11) % Eos % (Auto) (0-4) % Baso % (Auto) (0-2) % Lymph # (Auto) (1.2-4.9) X10*3/uL [place] # (Auto) (0.1-1.2) X10*3/uL Eos # (Auto) (0.0-0.4) X10*3/uL Baso # (Auto) (0.0-0.2) X10*3/uL Abs Immat Gran (auto) (0.00-0.03) X10*3/uL Absolute Neuts (auto) (2.0-8.3) x10*3/uL Absolute Nucleated RBC (0.0-0.012) X10*3/uL Nucleated RBC % (auto) (0.0-0.2) /100WBC PT 13.5 H (10.0-13.1) SEC Whole Blood PT (11.1-13.5) sec INR 1.2 H (0.9-1.1) Whole Blood INR (0.9-1.1) Sodium 140 (135-145) mmol/L Potassium 4.7 (3.3-5.1) mmol/L Chloride 103 (96-108) mmol/L Carbon Dioxide 27 (22-29) mmol/L Anion Gap 15 (12-20) BUN 18 H (9-16) mg/dL Creatinine 1.41 H (0.5-1.4) mg/dL Estim Creat Clear Calc 53.0 Estimated GFR 48 Random Glucose 118 H (60-115) mg/dL Calcium 9.0 (8.4-10.2) mg/dL Total Bilirubin 0.7 (0.0-1.0) mg/dL AST 30 (5-37) U/L ALT 13 (0-40) U/L Alkaline Phosphatase 55 (39-117) U/L Troponin I High Sens 5.9 (<3.5-35.0) ng/L Total Protein 6.2 L (6.5-8.0) g/dL Albumin 3.8 (3.5-5.0) g/dL COVID-19 (JIMMY) (Negative) COVID-19 Clin Com 06/25/22 06/25/22 06/25/22 Range/Units 09:33 09:33 09:35 WBC 8.3 (4.8-10.8) X10*3/uL RBC 4.43 L (4.60-5.80) X10*6/uL Hgb 12.8 L (14.0-18.0) g/dl Hct 38.7 L (42.0-52.0) % MCV 87.4 (80.0-98.0) fL MCH 28.9 (27.0-33.0) pg MCHC 33.1 (31.0-36.0) g/dl RDW 12.6 (11.0-16.0) % Plt Count 170 (160-400) X10*3/uL MPV 10.2 (9.4-12.4) fL Immature Gran % (Auto) 0.4 (0.0-0.4) % Neut % (Auto) 70.9 (45-73) % Lymph % (Auto) 17.0 L (20-40) % [place] % (Auto) 9.6 (2-11) % Eos % (Auto) 1.4 (0-4) % Baso % (Auto) 0.7 (0-2) % Lymph # (Auto) 1.4 (1.2-4.9) X10*3/uL [place] # (Auto) 0.8 (0.1-1.2) X10*3/uL Eos # (Auto) 0.1 (0.0-0.4) X10*3/uL Baso # (Auto) 0.1 (0.0-0.2) X10*3/uL Abs Immat Gran (auto) 0.03 (0.00-0.03) X10*3/uL Absolute Neuts (auto) 5.9 (2.0-8.3) x10*3/uL Absolute Nucleated RBC 0.000 (0.0-0.012) X10*3/uL Nucleated RBC % (auto) 0.0 (0.0-0.2) /100WBC PT (10.0-13.1) SEC Whole Blood PT 13.8 H (11.1-13.5) sec INR (0.9-1.1) Whole Blood INR 1.1 (0.9-1.1) Sodium (135-145) mmol/L Potassium (3.3-5.1) mmol/L Chloride (96-108) mmol/L Carbon Dioxide (22-29) mmol/L Anion Gap (12-20) BUN (9-16) mg/dL Creatinine (0.5-1.4) mg/dL Estim Creat Clear Calc Estimated GFR Random Glucose (60-115) mg/dL Calcium (8.4-10.2) mg/dL Total Bilirubin (0.0-1.0) mg/dL AST (5-37) U/L ALT (0-40) U/L Alkaline Phosphatase (39-117) U/L Troponin I High Sens (<3.5-35.0) ng/L Total Protein (6.5-8.0) g/dL Albumin (3.5-5.0) g/dL COVID-19 (JIMMY) Negative (Negative) COVID-19 Clin Com See Note Critical Care Time Critical Care Time Total Critical Care Time: 60 Attestation: speaking with EMS/neurosurgery/hospitalist//taking care of the pt,reviewing imaging and labs Discharge Plan Discharge Clinical Impression: Neoplasm of brain causing mass effect on adjacent structures Patient Disposition: Xfer Acute Care Hospital Transfer Details: [facility] no neurosurgery at [facility] Prescriptions: No Action tamsulosin [Flomax] 0.4 mg capsule 0.4 mg PO DAILY Qty: 30 0RF levofloxacin 500 mg tablet 500 mg PO DAILY 5 Days Qty: 5 0RF polyethylene glycol 3350 [Miralax] 17 gram/dose powder 17 g PO BID Qty: 510 0RF
--- NOTE | 2022-06-25 09:30 | PC.NURSE ---
@ [address] [facility] PT TX LINE CALLS BACK ASKING TO SPEAK WITH DR JEFF KAN TAKES OVER CALL RIGHT AWAY
[2022-06-25 09:40] LABS: MANUAL DIFF FLAG NO
[2022-06-25 09:42] LABS: Basophils Absolute Auto 0.1 X10*3/uL (0.0-0.2); Basophils Percent Auto 0.7 % (0-2); Eosinophils Absolute Auto 0.1 X10*3/uL (0.0-0.4); Eosinophils Percent Auto 1.4 % (0-4); Hematocrit 38.7 % (42.0-52.0); Hemoglobin 12.8 g/dl (14.0-18.0); Imm Gran Abs Auto 0.03 X10*3/uL (0.00-0.03); Imm Gran Pct Auto 0.4 % (0.0-0.4); Lymphocytes Absolute Auto 1.4 X10*3/uL (1.2-4.9); Mean Corpuscular HGB Conc 33.1 g/dl (31.0-36.0); Mean Corpuscular Hemoglobin 28.9 pg (27.0-33.0); Mean Corpuscular Volume 87.4 fL (80.0-98.0); Mean Platelet Volume 10.2 fL (9.4-12.4); Monocytes Absolute Auto 0.8 X10*3/uL (0.1-1.2); Monocytes Percent Auto 9.6 % (2-11); Neutrophils Absolute Auto 5.9 x10*3/uL (2.0-8.3); Neutrophils Percent Auto 70.9 % (45-73); Platelet Count 170 X10*3/uL (160-400); Red Blood Count 4.43 X10*6/uL (4.60-5.80); Red Cell Distribution Width 12.6 % (11.0-16.0); White Blood Count 8.3 X10*3/uL (4.8-10.8)
[2022-06-25 09:47] LABS: INTERNATIONAL NORM RATIO 1.2 (0.9-1.1); Prothrombin Time 13.5 SEC (10.0-13.1)
[2022-06-25] MEDS: levETIRAcetam in NaCl (iso-os) 1,000 MG/100 ML PIGGYBACK 400 MG IV (09:58)
[2022-06-25 10:05] LABS: Prothrombin Time Whole Bld POC 13.8 sec (11.1-13.5); ~PT, ~INR - Anti Coag Clinic 1.1 (0.9-1.1)
--- NOTE | 2022-06-25 10:08 | PC.NURSE ---
Pt is alert/oriented x 3 but repoprts periods of confusion over past two days with b/l leg weakness. Today pt found on floor by approx 0200 and pt presents to ED with left sided weakness and left sided facial droop noted noted by this RN. Speech is clear, slow to respond to questions asked but responds appropriately. Left arm and left leg weaker than right. PERRLA b/l. NSR on monitor. Medicated with Decadron given and Keppra infusing at this time. VSS. Dr Garcia to bedside discussing plan thus far, awaiting bed assgn from [facility].
[2022-06-25 10:12] LABS: COVID-19 Test Negative (Negative)
[2022-06-25 10:15] LABS: Alanine Aminotransferase 13 U/L (0-40); Albumin Level 3.8 g/dL (3.5-5.0); Alkaline Phosphatase 55 U/L (39-117); Anion Gap 15 (12-20); Aspartate Amino Transferase 30 U/L (5-37); Bilirubin Total 0.7 mg/dL (0.0-1.0); Blood Urea Nitrogen 18 mg/dL (9-16); Carbon Dioxide 27 mmol/L (22-29); Chloride 103 mmol/L (96-108); Estimated Glomerular Filt Rate 48; Glucose Random 118 mg/dL (60-115); Potassium 4.7 mmol/L (3.3-5.1); Sodium 140 mmol/L (135-145); Total Protein 6.2 g/dL (6.5-8.0)
[2022-06-25 10:22] LABS: Troponin-I High Sensitivity 5.9 ng/L (<3.5-35.0)
--- NOTE | 2022-06-25 10:43 | PC.NURSE ---
@ 1042AM CALL RECEIVED FROM [facility] PT TX LINE ASKING TO SPEAK WITH DR HANNAH KAN TAKES OVER CALL RIGHT AWAY
--- NOTE | 2022-06-25 11:00 | PC.NURSE ---
@ 1100AM ALL RECEIVED FROM [facility] PT TX LINE ASKING TO SPEAK WITH DR LUCIUS KAN TAKES OVER CALL RIGHT AWAY
--- NOTE | 2022-06-25 12:10 | MHC.STROKE ---
ems pre-notified stroke alert at 0838, arrived at 0843, examined and direct to cth and cta h/n. + right frontal lobe brain tumor. I reviewed scans with Dr. Kamara and patient has been accepted by [facility] Neurosurgery team. I did meet with the and patient and provided support, explained that this is a serious finding on his ct scan. The had her first from cancer at age 47. She has 2 children and her granddaughter is a nurse a [facility]. I encouraged her to call them and let them know what was happening and that he will be transferred. He will remain NPO and I did explain this to them.
--- NOTE | 2022-06-25 12:44 | PC.NURSE ---
Pt remains alert/oriented, unchanged neuro assessment at this time. and step daughter remain by side. Awaiting bed assgn at [facility]
--- NOTE | 2022-06-25 14:50 | PC.NURSE ---
CALL RECEIVED FROM [facility] PT TX LINE WITH ROOM ASSIGNMENT PHILLIPS 5B, ROOM 18 RN TO RN [phone] DR KELLEY ACCEPTING
--- NOTE | 2022-06-25 15:25 | PC.NURSE ---
Report to Ashwin at [facility]
== END 2022-06-25 16:45 | disposition short-term general hospital (02) ==
PROVIDERS: Emergency Provider Emergency Medicine; PCP Internal Medicine
DX: R47.81 Slurred speech (principal); M54.2 Cervicalgia; R51.9 Headache, unspecified; Z20.822 Contact with and (suspected) exposure to COVID-19; Z79.899 Other long term (current) drug therapy; Z87.891 Personal history of nicotine dependence
CPT/HCPCS: 36415; 70450; 70496; 70498; 71045; 80053; 84484; 85025; 85610; 87635; 93005; 96365; 96375; 99285; J1100; J1953